=== PATIENT | female | born 2000 | race Caucasian/White ===

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

== ENCOUNTER → 2022-02-08 12:37 | Outpatient (CLI) | payer OTHER, SELFPAY ==
[2022-02-08 14:29] LABS: HCG,Quantitative 171 mIU/ml (0-5.42)
== END ==
LOC: LAB 12:41
PROVIDERS: PCP Family Medicine; Visit Provider Obstetrics & Gynecology
DX: Z32.01 Encounter for pregnancy test, result positive (principal)
CPT/HCPCS: 36415; 84702

== ENCOUNTER → 2022-02-10 10:37 | Outpatient (CLI) | payer OTHER, SELFPAY ==
[2022-02-10 13:05] LABS: HCG,Quantitative 443 mIU/ml (0-5.42)
== END ==
PROVIDERS: PCP Family Medicine; Visit Provider Obstetrics & Gynecology
DX: Z34.90 Encounter for supervision of normal pregnancy, unspecified, unspecified trimester (principal)
CPT/HCPCS: 36415; 84702

== ENCOUNTER → 2022-03-01 10:40 | Outpatient (CLI) | payer OTHER, SELFPAY ==
--- NOTE | 2022-03-01 10:46 | US_ITS ---
FINAL REPORT CLINICAL HISTORY: dates FINDINGS: Sonographic images of the pelvis were obtained. A single, living intrauterine is noted. A yolk sac is present and measures 0.52 cm. [place] to rump length measures 0.76 cm which corresponds to 6 weeks 5 days gestation. Heartbeat is identified and measures 132 beats per minute. The right ovary is within normal limits. The left ovary is within normal limits. Blood flow is noted in both ovaries. IMPRESSION: Single, living, intrauterine gestation with 6 weeks 5 days ultrasound age. Reviewed, Interpreted and Dictated by Caden Keita MD Transcribed by Sharlene Ram Authenticated by Caden Keita MD on 03/01/2022 12:20:16 PM [facility]
[2022-03-01 11:32] LABS: Basophils # 0.1 K/mm3 (0-0.2); Basophils % 0.5 % (0.1-2.0); Eosinophils # 0.2 K/mm3 (0.0-0.4); Eosinophils % 1.6 % (0.1-12.0); Hematocrit 40.5 % (37.0-47.0); Lymphocytes # 2.3 K/mm3 (0.7-4.5); Lymphocytes % 23.2 % (10-50); Mean Corpuscular HGB Conc 34.6 g/dL (31.8-35.4); Mean Corpuscular Volume 86.8 fl (81-99); Mean Platelet Volume 7.8 fl (7.4-10.4); Monocytes # 0.5 K/mm3 (0.1-1.0); Monocytes % 5.4 % (1.7-9.3); Neutrophils # 6.8 K/mm3 (1.8-7.8); Neutrophils % 69.5 % (37.0-80.0); Platelet Count 328 K/mm3 (142-424); Red Blood Count 4.67 M/mm3 (4.20-5.40); Red Cell Distribution Width 12.8 % (11.5-17.5); White Blood Count 9.8 K/mm3 (4.5-13.0)
[2022-03-02 07:22] LABS: HIV Screen 4th Generation wRfx Non Reactive (Non Reactive); Hepatitis B Surface Antigen Negative (Negative); Hepatitis C Antibody <0.1 s/co ratio (0.0-0.9)
[2022-03-02 08:17] LABS: Rubella Antibodies, IgG 2.25 index (Immune >0.99)
[2022-03-02 13:46] LABS: Rapid Plasma Reagin Ab Titer Non Reactive (NonRea<1:1)
== END ==
LOC: RAD 10:42
PROVIDERS: PCP Family Medicine; Visit Provider Obstetrics & Gynecology
DX: Z34.90 Encounter for supervision of normal pregnancy, unspecified, unspecified trimester (principal)
CPT/HCPCS: 36415; 76801; 85025; 86592; 86703; 86762; 86850; 87340; 87380; G0432

== ENCOUNTER 2022-04-18 15:35 | Emergency (ER) | payer SELFPAY ==
--- NOTE | 2022-04-18 16:17 | PC.NURSE ---
checked on pt in lobby at this time. Explained to bed that there are no beds available in ER at this time, but will room pt as soon as a room is available. Pt verbalized understanding.
[2022-04-18 16:30] VITALS: BP 136/82; PULSE 85; RESP 16; TEMP 36.8; O2SAT 98; BMI 41.1
[2022-04-18 16:49] VITALS: BMI 41.1
--- NOTE | 2022-04-18 16:56 | PC.NURSE ---
pt ambulated to restroom at this time
--- NOTE | 2022-04-18 16:58 | HMH.EDGENADL ---
ED Disposition Clinical Impression: Nausea and vomiting during prior to 22 weeks gestation Disposition: Home, Self-Care Condition on Discharge: Good Instructions: DI for Hyperemesis Gravidarum, Nausea and Vomiting-Adult Additional Instructions: You have been evaluated for nausea and vomiting in . Please stay hydrated. Eat small meals throughout the day. Drink water and electrolyte containing liquids. Try home remedies like leticia and hot tea. Zofran as needed for nausea and vomiting. Follow-up with your PERSONNEL CLERK. Return to the emergency department for any new or worsening symptoms, cramping, bleeding, persistent vomiting or any other concerns. Referrals: Yousuf Vaughn MD [Primary Care Provider] - Time of Disposition: 18:13 - Critical Care Critical Care Time: No Attestation: On 04/18/22, the high probability of a clinically significant, sudden or life threatening deterioration of the following system(s) required my full and direct attention, intervention and personal management. The time I documented below is in addition to time spent performing reported procedures but includes the following listed in this critical care notation. Medical Decision Making - Medical Records Medical records reviewed: Yes: I reviewed the patient's medical records. - Fabian Inquiry Pt receiving controlled substance: No Vital Signs: 04/18/22 16:30 Temperature 98.2 F Temperature Source Oral Pulse Rate [Right Radial] 85 Respiratory Rate 16 Blood Pressure [Right Arm] 136/82 Blood Pressure Mean [Right Arm] 100 Blood Pressure Source [Right Arm] Automatic Cuff Blood Pressure Position [Right Arm] Sitting 02 Sat by Pulse Oximetry 98 Oxygen Delivery Method Room Air - Lab Data Lab Results 04/18/22 16:54: WBC 12.6, RBC 4.47, Hgb 13.7, Hct 37.2, MCV 83.4, MCH 30.7, MCHC 36.9 H, RDW 13.0, Plt Count 278, MPV 8.1, Neut % (Auto) 81.6 H, Lymph % (Auto) 12.9, [place] % (Auto) 4.3, Eos % (Auto) 1.0, Baso % (Auto) 0.2, Neut # (Auto) 10.3 H, Lymph # (Auto) 1.6, [place] # (Auto) 0.5, Eos # (Auto) 0.1, Baso # (Auto) 0.0 04/18/22 16:54: Sodium 134 L, Potassium 4.1, Chloride 104, Carbon Dioxide 22, Anion Gap 12.1, BUN 5 L, Creatinine 0.40 L, Estimated Creat Clear 386 H, Estimated GFR 203, Est GFR ( Amer) 246, Glucose 92, Calcium 9.8, Total Bilirubin 0.5, AST 25, ALT 19, Alkaline Phosphatase 60, Total Protein 7.2, Albumin 4.1, Globulin 3.1, Albumin/Globulin Ratio 1.3, Lipase 49, HCG, Quant 60919 H 04/18/22 16:56: Urine Color Yellow, Urine Appearance Clear, Urine pH 7.5, Ur Specific [place] 1.020, Urine Protein Trace, Urine Glucose (UA) Negative, Urine Ketones 2+, Urine Blood Negative, Urine Nitrate Negative, Urine Bilirubin Negative, Urine Urobilinogen 1.0, Ur Leukocyte Esterase Negative Result diagrams: 04/18/22 16:54 04/18/22 16:54 Orders (Tests/Meds): ED MEDICATIONS Generic Name Dose Route Start Last Admin Trade Name Salq PRN Reason Stop Dose Admin Sodium Chloride 1,000 mls @ 999 mls/hr 04/18/22 17:00 04/18/22 17:19 Sod Chlor 0.9% 1000ml Bag IV 04/18/22 18:00 999 mls/hr .Q1H1M NOAH Administration Sodium Chloride 10 ml 04/18/22 16:57 Sodium Chloride 0.9% 10ml Flush Syringe IV 05/18/22 16:56 NEEDED PRN Maintain IV Site ORDERS Category Date Time Status Urinalysis and Microscopic Stat Lab 04/18/22 16:56 Results Medical Decision Narrative: In summary this is a 22-year-old female at 13 weeks gestation presenting to the emergency department with nausea and vomiting. Patient clinically stable on arrival. Vital signs within normal limits. Will obtain screening CBC, CMP, urinalysis, hCG. Given IV fluids Laboratory results are reassuring. No leukocytosis. Glucose and electrolytes are within normal limits. There is no renal insufficiency. Beta hCG elevated at 54,000. Urinalysis shows few ketones. No protein or signs of infection. Reassessment, patient feeling much charu
[2022-04-18 17:09] LABS: Chloride 104 mmol/L (98-107); Sodium 134 mmol/L (136-145)
[2022-04-18 17:10] LABS: Potassium 4.1 mmoL/L (3.5-5.1)
[2022-04-18 17:12] LABS: Alanine Aminotransferase 19 U/L (12-78); Albumin Level 4.1 g/dl (3.5-5.0); Albumin/Globulin Ratio 1.3 (1.1-1.8); Alkaline Phosphatase 60 U/L (38-126); Anion Gap 12.1 mEq/L (5-15); Aspartate Amino Transferase 25 U/L (14-36); Bilirubin,Total 0.5 mg/dl (0.2-1.3); Blood Urea Nitrogen 5 mg/dl (7-17); Calcium 9.8 mg/dl (8.4-10.2); Carbon Dioxide 22 mmol/L (22.0-30.0); Creatinine Clearance Estimated 386 mL/min (50-200); Estimated Glomerular Filt Rate 203 ml/min (>60); GFR (African American) 246 ML/MIN (>60); Globulin 3.1 g/dL (1.3-3.2); Glucose 92 mg/dl (74-100); Lipase 49 U/L (23-300); Total Protein,Serum 7.2 g/dl (6.3-8.2)
[2022-04-18 17:18] LABS: Basophils % 0.2 % (0.1-2.0); Eosinophils # 0.1 K/mm3 (0.0-0.4); Hematocrit 37.2 % (37.0-47.0); Hemoglobin 13.7 g/dL (12.2-16.2); Lymphocytes # 1.6 K/mm3 (0.7-4.5); Lymphocytes % 12.9 % (10-50); Mean Corpuscular HGB Conc 36.9 g/dL (31.8-35.4); Mean Corpuscular Hemoglobin 30.7 pg (27.0-31.2); Mean Corpuscular Volume 83.4 fl (81-99); Mean Platelet Volume 8.1 fl (7.4-10.4); Monocytes # 0.5 K/mm3 (0.1-1.0); Monocytes % 4.3 % (1.7-9.3); Neutrophils # 10.3 K/mm3 (1.8-7.8); Neutrophils % 81.6 % (37.0-80.0); Platelet Count 278 K/mm3 (142-424); Red Blood Count 4.47 M/mm3 (4.20-5.40); White Blood Count 12.6 K/mm3 (4.5-13.0)
[2022-04-18 17:25] LABS: Microscopic, Urine URINE MICROSCOPIC (MICROSCOPIC)
[2022-04-18 17:57] LABS: HCG,Quantitative 54821 mIU/ml (0-5.42)
[2022-04-18 18:02] LABS: Appearance,Urine CLEAR (Clear); Bilirubin,Urine Negative (Negative); Blood, Urine Negative (Negative); Color,Urine YELLOW (Yellow); Glucose,Urine (UA) Negative (Negative); Ketones,Urine 2+ (Negative); Leukocyte Esterase,Urine Negative (Negative); Nitrate,Urine Negative (Negative); PH,Urine 7.5 (5.0-8.5); Protein,Urine TRACE (Negative)
[2022-04-18 18:59] LABS: Bacteria,Urine Trace /lpf; Squamous Epithelial Cell,Urine Occasional #/hpf (0-5)
[2022-04-18 19:04] VITALS: BP 130/80; PULSE 80; RESP 18; TEMP 36.8; O2SAT 99
== END 2022-04-18 18:40 | disposition home or self-care (01) ==
PROVIDERS: Emergency Provider Emergency Medicine; PCP Family Medicine
DX: O21.2 Late vomiting of pregnancy (principal); Z3A.22 22 weeks gestation of pregnancy
CPT/HCPCS: 80053; 81001; 83690; 84702; 85025; 96360; 99284

== ENCOUNTER 2023-10-31 02:46 | Emergency (ER) | payer BC, SELFPAY ==
[2023-10-31 02:47] VITALS: BP 140/91; PULSE 98; RESP 20; TEMP 36.9; O2SAT 99; BMI 34.3
--- NOTE | 2023-10-31 02:55 | HMH.EDGENADL ---
Discharge Plan Disposition Patient Disposition: Home, Self-Care Prescriptions Prescriptions: No Action amoxicillin-pot clavulanate 875-125 mg tablet 1 tab PO ONCE Patient Comments: TAKE 1 TABLET BY MOUTH TWICE DAILY UNTIL GONE hydrocodone-acetaminophen 5-325 mg tablet 1 tab PO Q4-6H PRN escitalopram oxalate 20 mg tablet 20 mg PO DAILY Qty: 30 5RF Referrals Follow up/Referrals: Elio Buckner MD [Primary Care Provider] - See instructions Activity Restrictions/Add. Instructions Additional Instructions/Restrictions: Please follow-up with your OBGYN. Please return to the emergency department if you develop any new or worsening symptoms or become concerned for your health. Clinical Impressions Clinical Impression: Vaginal bleeding affecting early Discharge ED Provider: Moise Morgan Adult HPI General Chief complaint: Vaginal Bleeding Stated complaint: vaginal bleeding-6wks preg Time Seen by Provider: 10/31/23 02:54 History of Present Illness HPI narrative: 23-year-old female, reportedly 6 weeks , presents with vaginal spotting. She reports that she has had some pelvic discomfort and noted spotting when she woke up at 2 AM this morning. She reports that she had a prior that was complicated by potential abruption and at 36 weeks. The baby only lived for 1 week at that time. She reports that she is very concerned about the health of the current . She reports no burning with urination. She has not establish care with [facility] for this as yet. She denies any other significant medical history. Related Data Home Medications Medication Instructions Recorded Confirmed amoxicillin 875 mg-potassium 1 tab PO ONCE 11/30/22 11/30/22 clavulanate 125 mg tablet hydrocodone 5 mg-acetaminophen 325 1 tab PO Q4-6H PRN 11/30/22 11/30/22 mg tablet Previous Rx's Medication Instructions Recorded escitalopram oxalate 20 mg tablet 20 mg PO DAILY #30 tabs 02/15/23 Allergies Allergy/AdvReac Type Severity Reaction Status Date / Time No Known Allergies Allergy Verified 11/30/22 10:12 [facility] Disclaimer: The information contained in this section may have been updated after the patient was seen, as this information can be updated by other users. Medical History depression Surgical History History of Family History Other Cancer Diabetes Hyperlipidemia Hypertension Stroke Thyroid disorder Social History Smoking Status: Never smoker alcohol intake: never substance use type: denies use current occupational status: student Travel in the last 8 weeks: None household members: family housing: house ROS Obtained: Yes All systems reviewed & no additional complaints except as documented Physical Exam General General appearance: alert and in no apparent distress Head Head exam: atraumatic and normocephalic Eye Eye exam: Present normal appearance, PERRL and EOMI ENT ENT exam: Present normal oropharynx and normal external ear exam Neck Neck exam: Present normal inspection and full ROM Chest Chest inspection: Present normal inspection and symmetric chest wall rise; Absent tenderness Respiratory Respiratory exam: Present normal lung sounds bilaterally; Absent respiratory distress Cardiovascular Cardiovascular exam: Present regular rate and normal rhythm Abdominal Exam Abdominal exam: Present soft; Absent distention, tenderness or guarding Extremities Exam Extremities exam: Present normal inspection; Absent edema or joint swelling Back Exam Back exam: Present normal inspection; Absent tenderness Neurological Exam Neurological exam: Present alert and oriented X3;
--- NOTE | 2023-10-31 03:05 | PC.NURSE ---
US tech paged
--- NOTE | 2023-10-31 03:13 | PC.NURSE ---
pt and best friend at bedside
--- NOTE | 2023-10-31 03:16 | US_ITS ---
PROCEDURE INFORMATION: Exam: US , Transvaginal Exam date and time: 10/31/2023 3:38 AM Age: 23 years old Clinical indication: Lmp or gestational age (in weeks): 09/21/2023; Other: Spotting bleeding; ; Prior surgery; Surgery date: 6+ months; Surgery type: Csec 1 yr ago; Additional info: 6 wks, spotting, rule out ectopic LABS AND CLINICAL REPORTS: Last menstrual period start date: 09/21/2023 Gestational age (Established): 5 w 5 d Estimated due date (Established): 06/27/2024 TECHNIQUE: Imaging protocol: Real-time transvaginal obstetrical ultrasound of the maternal pelvis with image documentation. Transvaginal imaging was used for better evaluation of the fetus, adnexa, and/or cervix. COMPARISON: US OB <= 14 WEEKS FETUS 03/01/2022 10:55 AM FINDINGS: Gestation: Yolk sac measures 3.3 mm. BIOMETRY: Gestational age (AUA): 6 w 2 d Estimated due date (AUA): 06/23/2024 Mean sac diameter: 1.76 cm. [place]-Rump length (CRL): 3.84 mm. EGA (CRL) is 6 w 0 d MATERNAL: Right ovary/adnexa: Right ovary measures 3.8 cm x 4.56 cm x 2.01 cm. Right ovarian volume is 18.24 mL. Left ovary/adnexa: Left ovary measures 2.1 cm x 2.21 cm x 1.28 cm. Left ovarian volume is 3.11 mL. IMPRESSION: Early intrauterine noted, estimated gestational age 6 weeks and 2 days. No heartbeat was identified but it may be too early by dates.
[2023-10-31 03:38] LABS: Microscopic, Urine URINE MICROSCOPIC (MICROSCOPIC)
[2023-10-31 03:42] LABS: Appearance,Urine CLEAR (Clear); Bilirubin,Urine Negative (Negative); Blood, Urine TRACE-I (Negative); Color,Urine YELLOW (Yellow); Glucose,Urine (UA) Negative (Negative); Ketones,Urine Negative (Negative); Leukocyte Esterase,Urine Negative (Negative); Nitrate,Urine Negative (Negative); Protein,Urine Negative (Negative); Specific Gravity, Urine 1.025 (1.005-1.030); Urobilinogen,Urine 0.2 EU/dl (0.2)
[2023-10-31 03:44] LABS: Basophils # 0.1 K/mm3 (0-0.2); Basophils % 0.4 % (0.1-2.0); Eosinophils # 0.2 K/mm3 (0.0-0.4); Eosinophils % 1.2 % (0.1-12.0); Hematocrit 42.1 % (37.0-47.0); Hemoglobin 14.2 g/dL (12.2-16.2); Lymphocytes # 4.4 K/mm3 (0.7-4.5); Lymphocytes % 35.5 % (10-50); Mean Corpuscular HGB Conc 33.7 g/dL (31.8-35.4); Mean Corpuscular Hemoglobin 28.8 pg (27.0-31.2); Mean Corpuscular Volume 85.3 fl (81-99); Mean Platelet Volume 8.5 fl (7.4-10.4); Monocytes # 0.7 K/mm3 (0.1-1.0); Monocytes % 5.8 % (1.7-9.3); Platelet Count 308 K/mm3 (142-424); Red Blood Count 4.94 M/mm3 (4.20-5.40); Red Cell Distribution Width 13.6 % (11.5-17.5); White Blood Count 12.3 K/mm3 (4.8-10.8)
--- NOTE | 2023-10-31 03:44 | PC.NURSE ---
pt to US
[2023-10-31 03:48] LABS: Alanine Aminotransferase 29 U/L (12-78); Albumin/Globulin Ratio 1.4 (1.1-1.8); Alkaline Phosphatase 52 U/L (38-126); Anion Gap 8.8 mEq/L (5-15); Aspartate Amino Transferase 30 U/L (14-36); Bilirubin,Total 0.3 mg/dl (0.2-1.3); Blood Urea Nitrogen 12 mg/dl (7-17); Calcium 8.5 mg/dl (8.4-10.2); Carbon Dioxide 21 mmol/L (22.0-30.0); Chloride 107 mmol/L (98-107); Creatinine Clearance Estimated 319 mL/min (50-200); Estimated Glomerular Filt Rate 201 ml/min (>60); GFR (African American) 244 ML/MIN (>60); Globulin 2.9 g/dL (1.3-3.2); Glucose 90 mg/dl (74-100); Potassium 3.8 mmoL/L (3.5-5.1); Sodium 133 mmol/L (136-145); Total Protein,Serum 6.9 g/dl (6.3-8.2)
--- NOTE | 2023-10-31 04:16 | PC.NURSE ---
contacted lab to check on micro. spoke with [facility]. hasn't made it there yet
[2023-10-31 04:32] LABS: HCG,Quantitative 26385 mIU/ml (0-5.42)
[2023-10-31 04:39] LABS: Bacteria,Urine Trace /lpf
[2023-10-31 04:46] VITALS: BP 126/76; PULSE 76; RESP 18; TEMP 36.7; O2SAT 99
== END 2023-10-31 04:48 | disposition home or self-care (01) ==
PROVIDERS: Emergency Provider Emergency Medicine; PCP Family Medicine
DX: O26.851 Spotting complicating pregnancy, first trimester (principal); O26.891 Other specified pregnancy related conditions, first trimester; R10.30 Lower abdominal pain, unspecified; Z3A.01 Less than 8 weeks gestation of pregnancy
CPT/HCPCS: 76817; 80053; 81001; 84702; 85025; 86850; 99285